=== PATIENT | male | born 2000 | race Caucasian/White ===

== ENCOUNTER 2022-11-26 00:02 | Emergency (ER) | payer OTHER ==
[~2022-11-26] VITALS: Ht 198.1 cm; Wt 113.4 kg
[2022-11-26 00:08] VITALS: BP 160/100
--- NOTE | 2022-11-26 00:08 | NUR ---
[email or web address], from group home, clearance for booking, lac in the head s/p hitting his head on a [employer] car window. no loc. Pt A/Ox4. Tolerating R/A well with no resp distress. Safety measures in place.
[2022-11-26] MEDS ORDERED: ACETAMINOPHEN ES 500 MG TABLET PO ONE (00:30)
[2022-11-26] MEDS ORDERED: TDAP [DIPH/PERTUSSIS/TET] 0.5 ML VIAL IM ONE ×2 (00:30→00:45)
[2022-11-26] MEDS ORDERED: IBUPROFEN 600 MG TABLET PO ONE (00:30)
[2022-11-26] MEDS ORDERED: IBUPROFEN 600 MG TABLET ONE (00:45)
[2022-11-26] MEDS ORDERED: ACETAMINOPHEN ES 500 MG TABLET ONE (00:45)
--- NOTE | 2022-11-26 01:13 | NUR ---
Patient discharged to [facility] custody in stable condition. Written and verbal after care instructions given. Patient verbalizes understanding of instruction.
== END 2022-11-26 01:20 | disposition home or self-care (01) ==
LOC: ER 00:04
DX: S01.01XA Laceration without foreign body of scalp, initial encounter (principal); W18.02XA Striking against glass with subsequent fall, initial encounter; Y93.89 Activity, other specified; Y92.89 Other specified places as the place of occurrence of the external cause; Y99.8 Other external cause status
CPT/HCPCS: 90715